=== PATIENT | male | born 1980 | race Hispanic/Latino ===

== ENCOUNTER 2020-11-04 09:39 | Inpatient (IN) | payer OTHER ==
[~2020-11-04] VITALS: Ht 170.2 cm; Wt 80.5 kg
[2020-11-04 10:22] LABS: APPEARANCE,URINE CLEAR (CLEAR); BILIRUBIN,URINE LARGE (NEGATIVE); COLOR,URINE ORANGE (YELLOW); GLUCOSE, URINE (UA) 100 mg/dL (NEGATIVE); KETONES,URINE 5 mg/dL (NEGATIVE); LEUKOCYTE ESTERASE ,URINE NEGATIVE (NEGATIVE); NITRATE,URINE NEGATIVE (NEGATIVE); OCCULT BLOOD,URINE NEGATIVE (NEGATIVE); PROTEIN,URINE TRACE mg/dL (NEGATIVE)
[2020-11-04 10:30] LABS: AMPHET/METH SCREEN,URINE NEGATIVE (NEGATIVE); BARBITURATE SCREEN, URINE NEGATIVE (NEGATIVE); BENZODIAZEPINES SCREEN,URINE NEGATIVE (NEGATIVE); CANNABINOID SCREEN,URINE NEGATIVE (NEGATIVE); COCAINE SCREEN,URINE NEGATIVE (NEGATIVE); OPIATE SCREEN,URINE NEGATIVE (NEGATIVE); PHENCYCLIDINE SCREEN,URINE NEGATIVE (NEGATIVE)
[2020-11-04 10:31] LABS: BASOPHILS % (AUTO) 1.1 % (0.0-5.0); EOSINOPHILS % (AUTO) 0.4 % (0.0-8.0); HEMATOCRIT 29.2 % (42-54); LYMPHOCYTES % (AUTO) 7.7 % (21.0-51.0); MEAN CORPUSCULAR HEMOGLOBIN 33.8 pg (27.0-33.0); MEAN CORPUSCULAR HGB CONC 34.2 g/dL (32.0-36.0); MEAN CORPUSCULAR VOLUME 98.6 fL (79-99); MONOCYTES % (AUTO) 9.3 % (3.0-13.0); NEUTROPHILS % (AUTO) 80.6 % (40.0-77.0); PLATELET COUNT (AUTO) 49 K/uL (130-400); RED BLOOD CELL COUNT(AUTO) 2.96 MIL/uL (4.50-6.20); RED CELL DISTRIBUTION WIDTH 17.3 % (11.0-15.5); WHITE BLOOD COUNT (AUTO) 5.7 K/uL (4.8-10.8)
[2020-11-04 10:36] LABS: BACTERIA,URINE Few /HPF (None Seen); RBC,URINE None Seen /HPF (0-1); WBC,URINE None Seen /HPF (0-1)
[2020-11-04 10:37] LABS: AMORPHOUS SEDIMENT,UR Few /LPF (None Seen)
[2020-11-04 10:39] LABS: INR 1.57 (0.85-1.15); PROTHROMBIN TIME 16.7 SEC (9.6-11.6)
[2020-11-04 10:58] LABS: ALBUMIN 2.5 g/dL (3.5-5.0); CREATININE 1.7 mg/dL (0.5-1.5); TOTAL PROTEIN, SERUM 6.8 g/dL (6.0-8.3)
[2020-11-04 11:01] LABS: BILIRUBIN,TOTAL 44.1 mg/dL (0.2-1.0); POTASSIUM 2.4 mmol/L (3.5-5.1)
[2020-11-04 11:33] LABS: MAGNESIUM 2.5 mg/dL (1.80-2.40); PHOSPHORUS 2.2 mg/dL (2.5-4.9)
[2020-11-04 11:48] LABS: BAND NEUTROPHILS % (MANUAL) 1 % (0-2); LYMPHOCYTES % (MANUAL) 8 % (22-44); MAN.DIFF COMMENT-IMPRESSION MANUAL DIFFERENTIAL; MONOCYTES % (MANUAL) 4 % (2-9); SEGMENTED NEUTROPHILS % 87 % (40-70)
[2020-11-04 11:49] LABS: PLATELET MORPHOLOGY COMMENT SLIGHTLY DECREASED
[2020-11-04] MEDS ORDERED: POTASSIUM CHLORIDE 20 MEQ ERTAB PO ONE (12:21)
[2020-11-04] MEDS ORDERED: NITROGLYCERIN 0.4 MG SL TAB SL PRN (15:15)
[2020-11-04] MEDS ORDERED: LACTULOSE 20 GM/30 ML UDCUP PO SCH (15:15)
[2020-11-04] MEDS ORDERED: LACTULOSE 20 GM/30 ML UDCUP PO PRN ×2 (15:15→20:00)
[2020-11-04] MEDS ORDERED: ACETAMINOPHEN 325 MG TAB PO PRN (15:15)
[2020-11-04] MEDS ORDERED: LACTULOSE 20 GM/30 ML UDCUP ONE ×2 (16:29→20:57)
[2020-11-04] MEDS ORDERED: ACETAMINOPHEN 325 MG TAB ONE (16:29)
[2020-11-04] MEDS: POTASSIUM CHLORIDE 20 MEQ ERTAB PO SCH ×2 (19:30→21:00)
[2020-11-04] MEDS ORDERED: FAMOTIDINE 20MG TAB 20 MG TAB ONE (20:57)
[2020-11-04] MEDS: FAMOTIDINE 20MG TAB 20 MG TAB PO SCH (21:00)
[2020-11-05 05:18] LABS: BASOPHILS % (AUTO) 1.6 % (0.0-5.0); EOSINOPHILS % (AUTO) 0.9 % (0.0-8.0); HEMATOCRIT 24.7 % (42-54); LYMPHOCYTES % (AUTO) 11.2 % (21.0-51.0); MEAN CORPUSCULAR HEMOGLOBIN 33.6 pg (27.0-33.0); MEAN CORPUSCULAR HGB CONC 34.4 g/dL (32.0-36.0); MEAN CORPUSCULAR VOLUME 97.6 fL (79-99); MONOCYTES % (AUTO) 13.4 % (3.0-13.0); PLATELET COUNT (AUTO) 45 K/uL (130-400); RED BLOOD CELL COUNT(AUTO) 2.53 MIL/uL (4.50-6.20); RED CELL DISTRIBUTION WIDTH 17.2 % (11.0-15.5); WHITE BLOOD COUNT (AUTO) 4.4 K/uL (4.8-10.8)
[2020-11-05 05:49] LABS: ALBUMIN 2.1 g/dL (3.5-5.0); CREATININE 1.2 mg/dL (0.5-1.5); CRP QUANTITATIVE 52.1 mg/L (0.00-9.0); TOTAL PROTEIN, SERUM 5.7 g/dL (6.0-8.3)
[2020-11-05 05:53] LABS: POTASSIUM 2.4 mmol/L (3.5-5.1)
[2020-11-05] MEDS ORDERED: POTASSIUM CHLORIDE 20 MEQ ERTAB PO ONE ×2 (08:34→14:46)
[2020-11-05] MEDS: FAMOTIDINE 20MG TAB 20 MG TAB PO SCH ×2 (09:00→21:00)
[2020-11-05] MEDS: POTASSIUM CHLORIDE 20 MEQ ERTAB PO SCH ×4 (09:00→21:00)
[2020-11-05] MEDS ORDERED: LORAZEPAM 2 MG/ML 1 ML VIAL IVP PRN (12:30)
[2020-11-05] MEDS ORDERED: FOLIC ACID 1 MG TABLET PO SCH (12:30)
[2020-11-05] MEDS ORDERED: THIAMINE HCL 100 MG TABLET PO SCH (12:30)
[2020-11-05] MEDS ORDERED: THIAMINE HCL 100 MG TABLET ONE (14:46)
[2020-11-05] MEDS ORDERED: FOLIC ACID 1 MG TABLET ONE (14:46)
[2020-11-05] MEDS ORDERED: LACTULOSE 20 GM/30 ML UDCUP ONE (15:17)
--- NOTE | 2020-11-05 17:13 | NUR ---
DC PLAN NO ANSWER FOR IA CM WILL CONTINUE TO FOLLOW. CURRENTLY IN ER. Addendum: 11/05/20 at 1714 by RODNEY REID RN CM Amended: Links added.
[2020-11-05] MEDS ORDERED: FAMOTIDINE 20MG TAB 20 MG TAB ONE (19:34)
[2020-11-05] MEDS ORDERED: POTASSIUM CHLORIDE 10% ELIXIR 20 MEQ/15 ML UDCUP ONE (19:34)
[2020-11-06 03:06] LABS: BASOPHILS % (AUTO) 1.5 % (0.0-5.0); EOSINOPHILS % (AUTO) 0.9 % (0.0-8.0); HEMATOCRIT 25.1 % (42-54); LYMPHOCYTES % (AUTO) 10.4 % (21.0-51.0); MEAN CORPUSCULAR HEMOGLOBIN 34.6 pg (27.0-33.0); MEAN CORPUSCULAR HGB CONC 35.1 g/dL (32.0-36.0); MEAN CORPUSCULAR VOLUME 98.8 fL (79-99); MONOCYTES % (AUTO) 15.1 % (3.0-13.0); PLATELET COUNT (AUTO) 45 K/uL (130-400); RED BLOOD CELL COUNT(AUTO) 2.54 MIL/uL (4.50-6.20); WHITE BLOOD COUNT (AUTO) 4.7 K/uL (4.8-10.8)
[2020-11-06 03:39] LABS: ALBUMIN 2.1 g/dL (3.5-5.0); CREATININE 1.3 mg/dL (0.5-1.5); TOTAL PROTEIN, SERUM 5.8 g/dL (6.0-8.3)
[2020-11-06 03:43] LABS: BILIRUBIN,TOTAL 39.8 mg/dL (0.2-1.0); POTASSIUM 2.4 mmol/L (3.5-5.1)
[2020-11-06] MEDS ORDERED: POTASSIUM CHLORIDE 10% ELIXIR 20 MEQ/15 ML UDCUP ONE (04:22)
[2020-11-06] MEDS ORDERED: FAMOTIDINE 20MG TAB 20 MG TAB ONE (07:58)
[2020-11-06] MEDS ORDERED: POTASSIUM CHLORIDE 20 MEQ ERTAB PO ONE (07:58)
[2020-11-06] MEDS ORDERED: THIAMINE HCL 100 MG TABLET ONE (07:58)
[2020-11-06] MEDS ORDERED: FOLIC ACID 1 MG TABLET ONE (07:59)
[2020-11-06] MEDS ORDERED: LIDOCAINE HCL-MPF 1% 2ML VIAL ONE (07:59)
[2020-11-06] MEDS ORDERED: POTASSIUM CHLORIDE 20MEQ/100ML 100 ML IV ONE (07:59)
[2020-11-06] MEDS ORDERED: POTASSIUM CHLORIDE 10% ELIXIR 20 MEQ/15 ML UDCUP PO PRN (08:00)
[2020-11-06] MEDS ORDERED: POTASSIUM CHLORIDE 20MEQ/100ML 100 ML IV PRN (08:00)
[2020-11-06] MEDS ORDERED: POTASSIUM CHLORIDE 20 MEQ ERTAB PO SCH (08:15)
[2020-11-06] MEDS: THIAMINE HCL 100 MG TABLET PO SCH (09:00)
[2020-11-06] MEDS: FOLIC ACID 1 MG TABLET PO SCH (09:00)
[2020-11-06] MEDS: FAMOTIDINE 20MG TAB 20 MG TAB PO SCH ×2 (09:00→21:05)
[2020-11-06] MEDS ORDERED: PHARMACY COMMUNICATION MISC PRN (09:30)
[2020-11-06] MEDS ORDERED: CHLORDIAZEPOXIDE HCL 25 MG CAP ONE (14:07)
[2020-11-06 17:24] VITALS: BP 108/71
--- NOTE | 2020-11-06 17:37 | NUR ---
DC PLAN PATIENT LIVES ALONE. INDEPENDENT ABLE TO PERFORM ADL'S. PATIENT HAS NO SERVICES OR DME'S. FEELS SAFE TO RETURN HOME. Addendum: 11/06/20 at 1739 by RODNEY REID RN CM Amended: Links added.
[2020-11-06] MEDS: POTASSIUM CHLORIDE 20 MEQ ERTAB PO SCH (19:30)
[2020-11-06 19:31] VITALS: BP 125/66
[2020-11-07] VITALS (7 sets, daily range): BP systolic 106–116; BP diastolic 56–64
[2020-11-07] MEDS: LACTULOSE 20 GM/30 ML UDCUP PO SCH ×2 (02:53→14:00)
[2020-11-07 05:34] LABS: BASOPHILS % (AUTO) 1.7 % (0.0-5.0); EOSINOPHILS % (AUTO) 0.8 % (0.0-8.0); HEMATOCRIT 26.2 % (42-54); LYMPHOCYTES % (AUTO) 11.5 % (21.0-51.0); MEAN CORPUSCULAR HEMOGLOBIN 34.1 pg (27.0-33.0); MEAN CORPUSCULAR HGB CONC 34.7 g/dL (32.0-36.0); MEAN CORPUSCULAR VOLUME 98.1 fL (79-99); MONOCYTES % (AUTO) 16.1 % (3.0-13.0); NEUTROPHILS % (AUTO) 68.8 % (40.0-77.0); PLATELET COUNT (AUTO) 46 K/uL (130-400); RED BLOOD CELL COUNT(AUTO) 2.67 MIL/uL (4.50-6.20); RED CELL DISTRIBUTION WIDTH 16.4 % (11.0-15.5); WHITE BLOOD COUNT (AUTO) 4.7 K/uL (4.8-10.8)
[2020-11-07 06:11] LABS: ALANINE AMINOTRANSFERASE 35 U/L (12-78); ALBUMIN 1.9 g/dL (3.5-5.0); ASPARTATE AMINOTRANSFERASE 103 U/L (10-37); CARBON DIOXIDE 23 mmol/L (21-32); CHLORIDE 101 mmol/L (101-111); CREATININE 1.2 mg/dL (0.5-1.5); GLOMERULAR FILTR. RATE CALC 71 mL/min (>60); GLUCOSE,RANDOM 94 mg/dL (70-105); SODIUM SERUM 135 mmol/L (136-145); UREA NITROGEN, BLOOD 8 mg/dL (7-18)
[2020-11-07 06:18] LABS: BILIRUBIN,TOTAL 41.4 mg/dL (0.2-1.0); POTASSIUM 2.6 mmol/L (3.5-5.1)
[2020-11-07] MEDS ORDERED: LIDOCAINE HCL-MPF 1% 2ML VIAL ONE ×2 (06:42→21:15)
[2020-11-07] MEDS: POTASSIUM CHLORIDE 20MEQ/100ML 100 ML IV PRN ×2 (06:44→21:20)
[2020-11-07] MEDS: POTASSIUM CHLORIDE 20 MEQ ERTAB PO PRN ×3 (06:45→22:51)
--- NOTE | 2020-11-07 08:00 | NUR ---
ANSWER NURSE CALL LIGHT pt pulled iv catheter blood present on gown and sheets and a trail to bathroom of blood instructed pt to call for assistance when up out of bed ,use nurse call light before ambulating voices understanding
[2020-11-07 09:50] LABS: TOTAL PROTEIN, SERUM > 12.0 g/dL (6.0-8.3)
[2020-11-07] MEDS: FAMOTIDINE 20MG TAB 20 MG TAB PO SCH ×2 (10:20→21:21)
[2020-11-07] MEDS: THIAMINE HCL 100 MG TABLET PO SCH (10:20)
[2020-11-07] MEDS: FOLIC ACID 1 MG TABLET PO SCH (10:20)
[2020-11-07] MEDS: CHLORDIAZEPOXIDE HCL 25 MG CAP PO PRN ×2 (10:22→21:21)
--- NOTE | 2020-11-07 14:51 | NUR ---
INITIAL SW met with patient. Patient lives alone. He has no home services or DME. Patient is able to complete ADL's independently but does not drive. Family assists with transportation. Patient has no PCP. List of local clinics provided to patient. Pharmacy is [facility] located on [facility] in [place]. DCP is home. Patient has no insurance or benefits. He is a [place] citizen and has worked in the past. Patient was provided with community resources for post hospitalization follow up. Patient was also provided with Good RX card for prescriptions and educated on [employer] $4 medication program and [employer] $5 medication program. Patient is being assisted by [employer] for financial matters.
[2020-11-07] MEDS: POTASSIUM CHLORIDE 20 MEQ ERTAB PO SCH (17:44)
[2020-11-08] MEDS: POTASSIUM CHLORIDE 20 MEQ ERTAB PO PRN ×3 (00:35→07:45)
[2020-11-08] MEDS: LACTULOSE 20 GM/30 ML UDCUP PO SCH (01:00)
[2020-11-08 03:40] VITALS: BP 90/50
[2020-11-08 05:56] LABS: INR 1.8 (0.85-1.15); PARTIAL THROMBOPLASTIN TIME 41.5 SEC (26.3-35.5)
[2020-11-08 06:25] LABS: ALBUMIN 1.9 g/dL (3.5-5.0); CREATININE 1.3 mg/dL (0.5-1.5); POTASSIUM 3.3 mmol/L (3.5-5.1); TOTAL PROTEIN, SERUM 5.7 g/dL (6.0-8.3)
[2020-11-08 06:42] LABS: BILIRUBIN,TOTAL 38.8 mg/dL (0.2-1.0)
[2020-11-08] MEDS: FAMOTIDINE 20MG TAB 20 MG TAB PO SCH (07:44)
[2020-11-08] MEDS: THIAMINE HCL 100 MG TABLET PO SCH (07:44)
[2020-11-08] MEDS: FOLIC ACID 1 MG TABLET PO SCH (07:44)
[2020-11-08] MEDS: CHLORDIAZEPOXIDE HCL 25 MG CAP PO PRN ×2 (07:46→10:25)
[2020-11-08 07:50] VITALS: BP 101/62
[2020-11-08 12:19] VITALS: BP 112/59
[2020-11-08 16:41] VITALS: BP 119/64
[2020-11-08] MEDS: POTASSIUM CHLORIDE 20 MEQ ERTAB PO SCH (19:30)
[2020-11-08 20:22] VITALS: BP 104/55
--- NOTE | 2020-11-08 21:00 | NUR ---
Discharged Against Medical Advice Stone Sawyer came back to re-insert PIV to the patient, but was found to be dressed up with his personal clothing. Pt was adamant to go home. 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 I've been here for days already. I need to go home. I am tired of waiting. They kept telling me to stay but I don't want to stay anymore. 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 Stone Sawyer explained the pt condition and the risk of going home. Pt said " I don't care". Stone Sawyer talked to pt's Sister ( Hannah) thru phone. Stone Sawyer explained to her also the pt condition and the risk involved if her brother goes home against medical advice. Sister said it's ok and that she's on her way to cherry picker operator his brother. Pt did signed the AMA form and was wheeled to ER. No untoward incident happened. Distress / discomfort not noted. Office Helper and on-call hospitalist made aware.
== END 2020-11-08 21:44 | disposition left against medical advice (07) | DRG 313 ==
LOC: EDH 09:39 → EDHIP 09:40 → 3BH 11-06 16:20
PROVIDERS: ADMIT Hospitalist; ATTEND Hospitalist
DX: R07.89 Other chest pain (principal); N17.9 Acute kidney failure, unspecified; F10.239 Alcohol dependence with withdrawal, unspecified; K72.90 Hepatic failure, unspecified without coma; N18.9 Chronic kidney disease, unspecified; D69.6 Thrombocytopenia, unspecified; D64.9 Anemia, unspecified; I48.91 Unspecified atrial fibrillation; K70.30 Alcoholic cirrhosis of liver without ascites; I86.8 Varicose veins of other specified sites; E87.6 Hypokalemia; R27.8 Other lack of coordination; R16.2 Hepatomegaly with splenomegaly, not elsewhere classified; R77.8 Other specified abnormalities of plasma proteins; Z20.828 Contact with and (suspected) exposure to other viral communicable diseases; Z53.29 Procedure and treatment not carried out because of patient's decision for other reasons; Z90.49 Acquired absence of other specified parts of digestive tract; Z82.49 Family history of ischemic heart disease and other diseases of the circulatory system
CPT/HCPCS: 36415; 74176; 76705; 78226; 80053; 80305; 81001; 82140; 82550; 83540; 83550; 83605; 83690; 83735; 84100; 84132; 84145; 84484; 85025; 85610; 85730; 86140; 87426; 93005; 93306; 93356; A9537; G0378; J2060; J3480; J3490; U0003

== ENCOUNTER 2020-11-11 10:46 | Inpatient (IN) | payer OTHER ==
[~2020-11-11] VITALS: Ht 170.2 cm; Wt 78.7 kg
[2020-11-11 11:34] LABS: BASOPHILS % (AUTO) 0.9 % (0.0-5.0); EOSINOPHILS % (AUTO) 0.1 % (0.0-8.0); HEMATOCRIT 31.5 % (42-54); LYMPHOCYTES % (AUTO) 6.2 % (21.0-51.0); MEAN CORPUSCULAR HEMOGLOBIN 34.2 pg (27.0-33.0); MEAN CORPUSCULAR HGB CONC 34.9 g/dL (32.0-36.0); MEAN CORPUSCULAR VOLUME 97.8 fL (79-99); MONOCYTES % (AUTO) 9.2 % (3.0-13.0); NEUTROPHILS % (AUTO) 82.4 % (40.0-77.0); PLATELET COUNT (AUTO) 59 K/uL (130-400); RED BLOOD CELL COUNT(AUTO) 3.22 MIL/uL (4.50-6.20); RED CELL DISTRIBUTION WIDTH 15.3 % (11.0-15.5)
[2020-11-11 11:35] LABS: APPEARANCE,URINE CLEAR (CLEAR); BILIRUBIN,URINE LARGE (NEGATIVE); GLUCOSE, URINE (UA) NEGATIVE (NEGATIVE); KETONES,URINE NEGATIVE (NEGATIVE); LEUKOCYTE ESTERASE ,URINE NEGATIVE (NEGATIVE); NITRATE,URINE NEGATIVE (NEGATIVE); OCCULT BLOOD,URINE NEGATIVE (NEGATIVE); PH,URINE 6.5 (5.0-8.0); PROTEIN,URINE NEGATIVE (NEGATIVE)
[2020-11-11 11:37] LABS: COLOR,URINE DARK YELLOW (YELLOW)
[2020-11-11 11:41] LABS: AMPHET/METH SCREEN,URINE NEGATIVE (NEGATIVE); BARBITURATE SCREEN, URINE NEGATIVE (NEGATIVE); BENZODIAZEPINES SCREEN,URINE POSITIVE (NEGATIVE); CANNABINOID SCREEN,URINE NEGATIVE (NEGATIVE); COCAINE SCREEN,URINE NEGATIVE (NEGATIVE); OPIATE SCREEN,URINE NEGATIVE (NEGATIVE); PHENCYCLIDINE SCREEN,URINE NEGATIVE (NEGATIVE)
[2020-11-11 11:52] LABS: BACTERIA,URINE Rare /HPF (None Seen); MUCUS,URINE Rare LPF (None Seen); RBC,URINE 0-1 /HPF (0-1); WBC,URINE 0-1 /HPF (0-1)
[2020-11-11 11:54] LABS: PLATELET MORPHOLOGY COMMENT DECREASED
[2020-11-11 12:02] LABS: CREATININE 1.7 mg/dL (0.5-1.5)
[2020-11-11 12:10] LABS: BILIRUBIN,TOTAL 43.5 mg/dL (0.2-1.0); POTASSIUM 2.9 mmol/L (3.5-5.1)
[2020-11-11 12:11] LABS: BILIRUBIN,DIRECT 29.7 mg/dL (0.0-0.3)
[2020-11-11 12:38] LABS: TOTAL PROTEIN, SERUM 6.5 g/dL (6.0-8.3)
[2020-11-11] MEDS ORDERED: CEFTRIAXONE SODIUM 1 GM ONE (13:03)
[2020-11-11] MEDS ORDERED: POTASSIUM CHLORIDE 20 MEQ ERTAB PO ONE (14:25)
[2020-11-11] MEDS ORDERED: ONDANSETRON HCL 4 MG/2 ML VIAL IV PRN (14:45)
[2020-11-11] MEDS ORDERED: DIPHENHYDRAMINE HCL 25 MG CAPSULE PO PRN (14:45)
[2020-11-11] MEDS: FUROSEMIDE 10 MG/ML 2ML VIAL IV SCH (14:45)
[2020-11-11] MEDS ORDERED: LACTULOSE 20 GM/30 ML UDCUP PO PRN (14:45)
[2020-11-11] MEDS ORDERED: CHLORDIAZEPOXIDE HCL 25 MG CAP PO PRN (15:00)
[2020-11-11] MEDS ORDERED: ACETAMINOPHEN EXTRA STRENGTH 500 MG TABLET PO PRN (15:00)
[2020-11-11] MEDS ORDERED: LORAZEPAM 2 MG/ML 1 ML VIAL IVP PRN (15:00)
[2020-11-11] MEDS ORDERED: PHARMACY COMMUNICATION MISC PRN (15:00)
[2020-11-11] MEDS ORDERED: LIDOCAINE HCL-MPF 1% 2ML VIAL IV PRN (15:00)
[2020-11-11] MEDS ORDERED: MULTIVITAMIN TABLET ONE (15:42)
[2020-11-11] MEDS ORDERED: FOLIC ACID 1 MG TABLET ONE (15:42)
[2020-11-11] MEDS ORDERED: FUROSEMIDE 10 MG/ML 2ML VIAL ONE (15:42)
[2020-11-11] MEDS ORDERED: FAMOTIDINE/PF 20 MG/2 ML VIAL IV ONE (15:43)
[2020-11-11 22:20] VITALS: BP_SYST 107; BP_SYST 108; BP_SYST 109; BP_DIAS 51; BP_DIAS 55; BP_DIAS 57
[2020-11-11] MEDS: FAMOTIDINE/PF 20 MG/2 ML VIAL IV SCH (22:42)
[2020-11-11] MEDS: POTASSIUM CHLORIDE 20 MEQ ERTAB PO PRN ×2 (22:42→23:12)
[2020-11-11 23:41] VITALS: BP 109/57
[2020-11-12] MEDS: FUROSEMIDE 10 MG/ML 2ML VIAL IV SCH (03:03)
[2020-11-12 04:00] VITALS: BP 101/55
[2020-11-12] MEDS ORDERED: PHARMACY COMMUNICATION MISC SCH (07:30)
[2020-11-12 07:47] LABS: BASOPHILS % (AUTO) 1.9 % (0.0-5.0); EOSINOPHILS % (AUTO) 0.6 % (0.0-8.0); HEMATOCRIT 26.6 % (42-54); LYMPHOCYTES % (AUTO) 10.5 % (21.0-51.0); MEAN CORPUSCULAR HEMOGLOBIN 34.8 pg (27.0-33.0); MEAN CORPUSCULAR HGB CONC 36.5 g/dL (32.0-36.0); MEAN CORPUSCULAR VOLUME 95.3 fL (79-99); MONOCYTES % (AUTO) 12.6 % (3.0-13.0); NEUTROPHILS % (AUTO) 73.6 % (40.0-77.0); PLATELET COUNT (AUTO) 53 K/uL (130-400); RED BLOOD CELL COUNT(AUTO) 2.79 MIL/uL (4.50-6.20); RED CELL DISTRIBUTION WIDTH 14.8 % (11.0-15.5); WHITE BLOOD COUNT (AUTO) 5.3 K/uL (4.8-10.8)
[2020-11-12 07:59] VITALS: BP 103/51
[2020-11-12 08:19] LABS: ALBUMIN 1.8 g/dL (3.5-5.0); CREATININE 1.8 mg/dL (0.5-1.5)
[2020-11-12 08:41] LABS: BILIRUBIN,TOTAL 39.2 mg/dL (0.2-1.0); POTASSIUM 2.1 mmol/L (3.5-5.1)
[2020-11-12 08:42] LABS: BILIRUBIN,DIRECT 29.2 mg/dL (0.0-0.3)
[2020-11-12] MEDS: FAMOTIDINE/PF 20 MG/2 ML VIAL IV SCH ×2 (08:51→20:29)
[2020-11-12] MEDS: LACTULOSE 20 GM/30 ML UDCUP PO SCH ×3 (08:51→20:29)
[2020-11-12] MEDS: PREDNISOLONE 5 MG/5 ML PO SCH (08:51)
[2020-11-12] MEDS: FOLIC ACID 1 MG TABLET PO SCH (08:51)
[2020-11-12] MEDS: THIAMINE HCL 100 MG/ML 2ML VIAL IM SCH (08:51)
[2020-11-12] MEDS: MULTIVITAMIN TABLET PO SCH (08:51)
[2020-11-12] MEDS: PREDNISOLONE 15 MG/5 ML PO SCH (08:52)
[2020-11-12] MEDS: POTASSIUM CHLORIDE 10% ELIXIR 20 MEQ/15 ML UDCUP PO PRN ×2 (08:52→13:40)
[2020-11-12] MEDS: POTASSIUM CHLORIDE 20MEQ/100ML 100 ML IV PRN ×2 (08:53→13:40)
[2020-11-12 08:56] LABS: TOTAL PROTEIN, SERUM 5.6 g/dL (6.0-8.3)
[2020-11-12] MEDS ORDERED: PREDNISONE 20 MG TABLET PO SCH (09:00)
[2020-11-12 09:48] LABS: INR 1.92 (0.85-1.15); PROTHROMBIN TIME 19.7 SEC (9.6-11.6)
[2020-11-12 11:00] VITALS: BP 105/57
[2020-11-12] MEDS ORDERED: POTASSIUM CHLORIDE 10MEQ/100ML 100 ML IV PRN (14:00)
[2020-11-12] MEDS ORDERED: POTASSIUM CHLORIDE 10% ELIXIR 20 MEQ/15 ML UDCUP PO PRN (14:00)
[2020-11-12 14:21] LABS: CREATININE 1.8 mg/dL (0.5-1.5); MAGNESIUM 2.3 mg/dL (1.80-2.40)
[2020-11-12 14:25] LABS: POTASSIUM 2.2 mmol/L (3.5-5.1)
--- NOTE | 2020-11-12 14:26 | NUR ---
CM NOTE/IA MET WITH PATIENT AT BEDSIDE. PER PATIENT, LIVES ALONE, IS INDEPENDENT WITH ADLS, NO USE OF PROVIDERS OR HOME HEALTH, HAS USE OF RIDES IF NEEDING TO SEE MEDICAL SERVICES AND FEELS SAFE TO RETURN HOME ONCE DISCHARGED. GOOD RX CARDS GIVEN AND EXPLAINED USE, VERBALIZED UNDERSTANDING. PATIENT INTERESTED IN PROVIDER SERVICES, NUMBER FOR DEPART OF AGING AND DISABILITY GIVEN TO PATIENT AND EXPLAINED, VERBALIZED UNDERSTANDING. Addendum: 11/12/20 at 1428 by MARTHA FUNG RN CM Amended: Links added.
--- NOTE | 2020-11-12 15:05 | NUR ---
RD NOTIFICATION Pt admitted due to hyperbilirubinemia, liver cirrhosis and hypokalemia Pt has hx of being a chronic acholic drinker. As per pt, he stopped drinking 11 days prior to admission. RD visited pt. Pt appears to be jaundiced. Hand trembling was noticed, along with weakness. Pt stating having unintentional weight loss. As per pt, his usual body weight was of 250 lbs in August 2020. Current weight is of 184 lbs. This indicates a 73% UBW and 26% WT [place] in 2 months. All these are evident of severe malnutrition. As per pt he stopped taking a daily MVI and only eats one meal/day Pt denies current nausea/vomiting. Prior to admission pt was experiencing nausea and vomiting however, pt' father gave pt an anti nausea/vomiting over the counter medication ("green bottle") as per pt RD RECOMMENDATION: When medically feasible to advance diet, consider a heart healthy diet, with snacks in between meals Pt may also benefit from 6 small meals/day if PO intake is <50% Continue vitamin supplementation as medically feasible When medically feasible, consider retinol lab values to assess Vitamin A status. Monitor for hyperglycemia and hypocalcemia. Monitor Bilirubin labs LABS: HGB 9.2, K 2.1, NA 135, BUN 20, CREAT 1.8, ALB 1.8, BILI 39.2, TOT PRO 5.6, AMMONIA 51 Addendum: 11/12/20 at [address] Amended: Links added.
[2020-11-12 15:22] LABS: APPEARANCE,URINE CLEAR (CLEAR); BILIRUBIN,URINE LARGE (NEGATIVE); COLOR,URINE YELLOW (YELLOW); GLUCOSE, URINE (UA) NEGATIVE (NEGATIVE); KETONES,URINE NEGATIVE (NEGATIVE); LEUKOCYTE ESTERASE ,URINE NEGATIVE (NEGATIVE); NITRATE,URINE NEGATIVE (NEGATIVE); OCCULT BLOOD,URINE NEGATIVE (NEGATIVE); PROTEIN,URINE NEGATIVE (NEGATIVE)
[2020-11-12 15:26] LABS: CREATININE,URINE RANDOM 48 mg/dL (30-135); SODIUM,URINE RANDOM 27 mmol/l (40-220)
[2020-11-12 15:33] LABS: BACTERIA,URINE Few /HPF (None Seen); MUCUS,URINE Few LPF (None Seen); SQUAMOUS EPITHELIAL CELL,UR Few /HPF (0-2)
[2020-11-12] MEDS ORDERED: POTASSIUM CHLORIDE 10% ELIXIR 20 MEQ/15 ML UDCUP PO SCH (16:15)
[2020-11-12 16:31] VITALS: BP 103/56
[2020-11-12 19:48] VITALS: BP 106/62
[2020-11-12] MEDS: POTASSIUM CHLORIDE 10% ELIXIR 20 MEQ/15 ML UDCUP PO SCH (20:30)
[2020-11-12 23:39] VITALS: BP 104/55
[2020-11-13] MEDS: LACTULOSE 20 GM/30 ML UDCUP PO SCH ×4 (01:50→18:54)
[2020-11-13 04:00] VITALS: BP 106/56
[2020-11-13 05:16] LABS: BASOPHILS % (AUTO) 0.5 % (0.0-5.0); EOSINOPHILS % (AUTO) 1.1 % (0.0-8.0); HEMATOCRIT 27.2 % (42-54); LYMPHOCYTES % (AUTO) 9.6 % (21.0-51.0); MEAN CORPUSCULAR HEMOGLOBIN 34.2 pg (27.0-33.0); MEAN CORPUSCULAR HGB CONC 35.3 g/dL (32.0-36.0); MEAN CORPUSCULAR VOLUME 96.8 fL (79-99); MONOCYTES % (AUTO) 10.7 % (3.0-13.0); PLATELET COUNT (AUTO) 60 K/uL (130-400); RED BLOOD CELL COUNT(AUTO) 2.81 MIL/uL (4.50-6.20); RED CELL DISTRIBUTION WIDTH 14.7 % (11.0-15.5); WHITE BLOOD COUNT (AUTO) 7.6 K/uL (4.8-10.8)
[2020-11-13 06:08] LABS: ALBUMIN 1.9 g/dL (3.5-5.0); CREATININE 1.8 mg/dL (0.5-1.5); MAGNESIUM 2.4 mg/dL (1.80-2.40); PHOSPHORUS 1.8 mg/dL (2.5-4.9); POTASSIUM 3.3 mmol/L (3.5-5.1)
[2020-11-13 06:12] LABS: BILIRUBIN,TOTAL 36.5 mg/dL (0.2-1.0)
[2020-11-13 06:15] LABS: INR 1.83 (0.85-1.15); PROTHROMBIN TIME 18.8 SEC (9.6-11.6)
[2020-11-13 06:41] LABS: TOTAL PROTEIN, SERUM 4.6 g/dL (6.0-8.3)
[2020-11-13 08:00] VITALS: BP 105/55
[2020-11-13] MEDS ORDERED: POTASSIUM CHLORIDE 20 MEQ/100 ML BAG IV SCH ×4 (09:00→20:00)
[2020-11-13] MEDS ORDERED: M.V.I. IV [ADULT] 10 ML, FOLIC ACID 1 MG, THIAMINE HCL 100 MG in SODIUM CHLORIDE 0.9% 1... IV SCH (09:00)
[2020-11-13] MEDS: THIAMINE HCL 100 MG/ML 2ML VIAL IM SCH (09:00)
[2020-11-13] MEDS ORDERED: POTASSIUM CHLORIDE 20 MEQ ERTAB PO SCH (09:00)
[2020-11-13] MEDS ORDERED: POTASSIUM CHLORIDE 20MEQ/100ML 100 ML IV SCH (09:45)
[2020-11-13] MEDS: MULTIVITAMIN TABLET PO SCH (09:47)
[2020-11-13] MEDS: FOLIC ACID 1 MG TABLET PO SCH (09:47)
[2020-11-13] MEDS: Vitamin B Complex/Vit C/Folic Acid PO SCH (09:48)
[2020-11-13] MEDS: POTASSIUM CHLORIDE 10% ELIXIR 20 MEQ/15 ML UDCUP PO SCH ×2 (09:49→20:57)
[2020-11-13] MEDS: FAMOTIDINE/PF 20 MG/2 ML VIAL IV SCH ×2 (09:50→20:56)
--- NOTE | 2020-11-13 11:47 | NUR ---
DISCUSSED PT'S ETOH DEPENDENCE AND DC PLAN STATES LAST DRINK 11 DAYS AGO/. STATES HAS NEVER BEEN TO AA IN THE PAST. DISCUSSED AA MEETINGS VIA [facility], RODNEY 'BIGBOOK' PATIENT WILL CONSIDER, AND THIS CM WILL RETURN IN PM, TO SET UP PATIENT AND SHOW HOW TO GET ON IF HE AGREES EARLIER ADVISED PATIENT THAT SENDING HIM TO REHAB WILL NOT BE POSSIBLE- PT IS UNINSURED. NOW DISCUSSED DC PLANS AND WHERE PATIENT CAN GO POST DISCHARGE SISTERS ALANNA AND ARMIN IN QUARANTINE/GETTING OVER COVID. STATES WILL PROBABLY GO STAY WITH HIS FATHER. DISCUSSED MELD SCORE W , 52% MORTALITY < 3 MONTHS' DISCUSSED. PENDING TO DISCUSS PROGNOSIS WITH PATIENT AT DISCHARGE. PLAN TO DC WHEN BILI IS TRENDING DOWN. CM AVAILABLE
[2020-11-13 11:49] VITALS: BP 98/47
[2020-11-13 13:23] LABS: MAGNESIUM 2.1 mg/dL (1.80-2.40); PHOSPHORUS 1.6 mg/dL (2.5-4.9); POTASSIUM 3.2 mmol/L (3.5-5.1)
[2020-11-13] MEDS: PREDNISOLONE 15 MG/5 ML PO SCH (13:40)
[2020-11-13] MEDS: PREDNISOLONE 5 MG/5 ML PO SCH (13:40)
[2020-11-13 16:00] VITALS: BP 116/65
[2020-11-13] MEDS ORDERED: POTASSIUM CHLORIDE 10% ELIXIR 20 MEQ/15 ML UDCUP PO SCH (16:15)
[2020-11-13] MEDS ORDERED: POTASSIUM CHLORIDE 20MEQ/100ML 100 ML IV ONE ×2 (16:30→20:00)
[2020-11-13 19:48] VITALS: BP 110/66
[2020-11-13] MEDS: LIDOCAINE HCL-MPF 1% 2ML VIAL IV PRN (23:08)
[2020-11-13 23:36] VITALS: BP 113/62
[2020-11-14] MEDS: LACTULOSE 20 GM/30 ML UDCUP PO SCH ×4 (00:50→18:50)
[2020-11-14 04:00] VITALS: BP 106/57
[2020-11-14 06:35] LABS: CREATININE 1.7 mg/dL (0.5-1.5); MAGNESIUM 2.4 mg/dL (1.80-2.40); PHOSPHORUS 2.4 mg/dL (2.5-4.9); POTASSIUM 3.6 mmol/L (3.5-5.1)
[2020-11-14] MEDS: FOLIC ACID 1 MG TABLET PO SCH (08:31)
[2020-11-14] MEDS: MULTIVITAMIN TABLET PO SCH (08:31)
[2020-11-14] MEDS: Vitamin B Complex/Vit C/Folic Acid PO SCH (08:31)
[2020-11-14] MEDS: FAMOTIDINE/PF 20 MG/2 ML VIAL IV SCH ×2 (08:32→20:17)
[2020-11-14] MEDS: POTASSIUM CHLORIDE 10% ELIXIR 20 MEQ/15 ML UDCUP PO SCH ×2 (08:32→20:17)
[2020-11-14] MEDS: THIAMINE HCL 100 MG/ML 2ML VIAL IM SCH (08:39)
--- NOTE | 2020-11-14 08:39 | NUR ---
im thiamine held due to pt receicing multivitamin iv fluid with thiamine
[2020-11-14] MEDS ORDERED: POTASSIUM CHLORIDE 20 MEQ ERTAB PO SCH (08:46)
[2020-11-14 09:31] LABS: ALBUMIN 1.9 g/dL (3.5-5.0)
[2020-11-14 09:32] VITALS: BP 117/61
[2020-11-14 09:35] LABS: BILIRUBIN,DIRECT 29.3 mg/dL (0.0-0.3); BILIRUBIN,TOTAL 39.5 mg/dL (0.2-1.0)
[2020-11-14] MEDS: PREDNISOLONE 5 MG/5 ML PO SCH (12:21)
[2020-11-14] MEDS: PREDNISOLONE 15 MG/5 ML PO SCH (12:21)
[2020-11-14 13:59] VITALS: BP 120/63
[2020-11-14 17:07] VITALS: BP 112/63
[2020-11-14 19:20] VITALS: BP 121/72
[2020-11-14 23:29] VITALS: BP 105/60
[2020-11-15] MEDS: LACTULOSE 20 GM/30 ML UDCUP PO SCH ×4 (02:48→18:59)
[2020-11-15 04:00] VITALS: BP 96/48
[2020-11-15 05:50] LABS: BASOPHILS % (AUTO) 0.3 % (0.0-5.0); HEMATOCRIT 29.7 % (42-54); LYMPHOCYTES % (AUTO) 5.7 % (21.0-51.0); MEAN CORPUSCULAR HEMOGLOBIN 34.1 pg (27.0-33.0); MEAN CORPUSCULAR VOLUME 97.4 fL (79-99); MONOCYTES % (AUTO) 9.5 % (3.0-13.0); NEUTROPHILS % (AUTO) 81.1 % (40.0-77.0); PLATELET COUNT (AUTO) 69 K/uL (130-400); RED BLOOD CELL COUNT(AUTO) 3.05 MIL/uL (4.50-6.20); RED CELL DISTRIBUTION WIDTH 14.6 % (11.0-15.5); WHITE BLOOD COUNT (AUTO) 12.7 K/uL (4.8-10.8)
[2020-11-15 07:04] LABS: ALBUMIN 1.9 g/dL (3.5-5.0); PHOSPHORUS 2.9 mg/dL (2.5-4.9); POTASSIUM 3.4 mmol/L (3.5-5.1)
[2020-11-15 08:15] VITALS: BP 121/67
[2020-11-15 09:04] LABS: BILIRUBIN,TOTAL 36.2 mg/dL (0.2-1.0)
[2020-11-15] MEDS: PREDNISOLONE 5 MG/5 ML PO SCH (09:53)
[2020-11-15] MEDS: FAMOTIDINE/PF 20 MG/2 ML VIAL IV SCH ×2 (09:53→20:21)
[2020-11-15] MEDS: Vitamin B Complex/Vit C/Folic Acid PO SCH (09:53)
[2020-11-15] MEDS: MULTIVITAMIN TABLET PO SCH (09:53)
[2020-11-15] MEDS: PREDNISOLONE 15 MG/5 ML PO SCH (09:53)
[2020-11-15] MEDS: POTASSIUM CHLORIDE 10% ELIXIR 20 MEQ/15 ML UDCUP PO SCH ×2 (09:54→20:22)
[2020-11-15 11:46] LABS: INR 1.92 (0.85-1.15); PROTHROMBIN TIME 19.4 SEC (9.6-11.6)
[2020-11-15] MEDS: THIAMINE HCL 100 MG/ML 2ML VIAL IM SCH (12:08)
[2020-11-15] MEDS: POTASSIUM CHLORIDE 20 MEQ ERTAB PO PRN ×2 (12:10→15:48)
[2020-11-15] MEDS: LIDOCAINE HCL-MPF 1% 2ML VIAL IV PRN (12:11)
[2020-11-15 12:25] VITALS: BP 120/63
[2020-11-15 18:34] VITALS: BP 121/70
[2020-11-15 19:05] VITALS: BP 112/63
[2020-11-15 23:20] VITALS: BP 117/62
[2020-11-16] MEDS: LACTULOSE 20 GM/30 ML UDCUP PO SCH ×2 (01:17→09:07)
[2020-11-16 03:44] VITALS: BP 126/74
[2020-11-16 05:50] LABS: BASOPHILS % (AUTO) 0.1 % (0.0-5.0); LYMPHOCYTES % (AUTO) 6.3 % (21.0-51.0); MEAN CORPUSCULAR HEMOGLOBIN 33.8 pg (27.0-33.0); MEAN CORPUSCULAR VOLUME 96.7 fL (79-99); MONOCYTES % (AUTO) 9.8 % (3.0-13.0); NEUTROPHILS % (AUTO) 82.2 % (40.0-77.0); PLATELET COUNT (AUTO) 57 K/uL (130-400); RED BLOOD CELL COUNT(AUTO) 2.69 MIL/uL (4.50-6.20); RED CELL DISTRIBUTION WIDTH 14.6 % (11.0-15.5); WHITE BLOOD COUNT (AUTO) 8.1 K/uL (4.8-10.8)
[2020-11-16 06:05] LABS: INR 1.89 (0.85-1.15); PROTHROMBIN TIME 19.1 SEC (9.6-11.6)
[2020-11-16 06:32] LABS: ALBUMIN 1.7 g/dL (3.5-5.0); CREATININE 1.8 mg/dL (0.5-1.5); POTASSIUM 3.3 mmol/L (3.5-5.1); TOTAL PROTEIN, SERUM 5.4 g/dL (6.0-8.3)
[2020-11-16 06:41] LABS: BILIRUBIN,DIRECT 24.9 mg/dL (0.0-0.3); BILIRUBIN,TOTAL 30.8 mg/dL (0.2-1.0)
[2020-11-16 08:01] VITALS: BP 114/63
[2020-11-16] MEDS ORDERED: THIA500T3 PO (08:23)
[2020-11-16] MEDS ORDERED: LACT10SO32 PO (08:23)
[2020-11-16] MEDS ORDERED: FOLI0.4T2 PO (08:23)
[2020-11-16] MEDS: FAMOTIDINE/PF 20 MG/2 ML VIAL IV SCH (09:05)
[2020-11-16] MEDS: Vitamin B Complex/Vit C/Folic Acid PO SCH (09:05)
[2020-11-16] MEDS: MULTIVITAMIN TABLET PO SCH (09:05)
[2020-11-16] MEDS: POTASSIUM CHLORIDE 10% ELIXIR 20 MEQ/15 ML UDCUP PO SCH (09:05)
[2020-11-16] MEDS: THIAMINE HCL 100 MG/ML 2ML VIAL IM SCH (09:05)
[2020-11-16] MEDS: PREDNISOLONE 15 MG/5 ML PO SCH (09:06)
[2020-11-16] MEDS: PREDNISOLONE 5 MG/5 ML PO SCH (09:06)
[2020-11-16 12:02] VITALS: BP 107/62
--- NOTE | 2020-11-16 14:50 | NUR ---
RD TEACHING NOTE Diet education due to pt request. MD recommendation for liver cirrhosis and foods with potassium due to hypokalemia. RD provided patient with list of high potassium foods along with ways to increase intake. Pt was given information for diet recommendations for liver cirrhosis. Pt was advised to limit/avoid excess sodium intake and to eat high quality protein as well as fiber with a balanced meal. Pt was advised to follow MD recommendations with vitamin intake and to avoid consumption of alcohol. Pt was encouraged to eat 5-6 small frequent meals and to have snacks before going to bed. Pt verbalized understanding. All questions and concerns were addressed. Contact RD as nutritional concerns arise. Thank you. Addendum: 11/16/20 at [address] Amended: Links added.
--- NOTE | 2020-11-16 14:59 | NUR ---
RD FOLLOW UP Pt is currently on a GI soft diet with a PO intake of 75-100% Pt stated he has a good appetite and is tolerating diet. Pt is on lactulose and protocol for 2-3 daily bowel movements. Pt's Bili is trending down as per EMR records. As per MD, pt voiced concerns for diet recommendation. RD completed diet education 11/16/20 with food suggestions to increase potassium intake. Pt is pending d/c. RD RECOMMENDATION: Continue current diet order. Monitor PO intake, if <50% consider 6 small frequent meals with ONS ensure BID. When medically feasible, pt may have regular diet. Monitor K, renal and Bili labs. Contact RD as nutritional concerns arise. Thank you LABS: K 3.3, CO2 16, BUN 24, CREAT 1.8, GFR 45, BG 115, TOT CA 7.6, PHOS 2.4, MG 3.0, BILI 30.8, ALB 1.7, TOT PRO 5.4 LBM: 11/15/20 Addendum: 11/16/20 at [address] Amended: Links added.
--- NOTE | 2020-11-16 16:52 | NUR ---
DC HOME IN CARE OF FAMILY. ENCOURAGED TO FOLLOW UP WITH AA ON DISCHARGE PT WITH MEDICAL OBSTACLES AND BEHAVIORAL CHALLENGES
== END 2020-11-16 18:00 | disposition home or self-care (01) | DRG 433 ==
LOC: EDH 10:46 → EDHIP 10:47 → UNDOADMIN 10:47 → EDHIP 10:48 → 3AH 21:19
PROVIDERS: ADMIT Hospitalist; ATTEND Hospitalist
DX: K70.31 Alcoholic cirrhosis of liver with ascites (principal); N17.9 Acute kidney failure, unspecified; D68.4 Acquired coagulation factor deficiency; E44.0 Moderate protein-calorie malnutrition; E87.6 Hypokalemia; N18.2 Chronic kidney disease, stage 2 (mild); D64.9 Anemia, unspecified; E11.22 Type 2 diabetes mellitus with diabetic chronic kidney disease; E83.39 Other disorders of phosphorus metabolism; E83.42 Hypomagnesemia; E87.5 Hyperkalemia; F10.10 Alcohol abuse, uncomplicated; Y90.9 Presence of alcohol in blood, level not specified; I12.9 Hypertensive chronic kidney disease with stage 1 through stage 4 chronic kidney disease, or unspecified chronic kidney disease; K70.11 Alcoholic hepatitis with ascites; Z82.49 Family history of ischemic heart disease and other diseases of the circulatory system; Z83.3 Family history of diabetes mellitus; Z91.19 Patient's noncompliance with other medical treatment and regimen; Z68.27 Body mass index [BMI] 27.0-27.9, adult; Z90.49 Acquired absence of other specified parts of digestive tract
CPT/HCPCS: 36415; 71045; 76705; 80048; 80053; 80076; 80305; 81001; 82140; 82570; 83735; 83935; 84100; 84132; 84300; 85025; 85610; 87040; G0378; J0696; J1940; J3411; J3480; J3490; J7030; J7510; Q0163

== ENCOUNTER 2020-11-25 09:55 | Inpatient (IN) | payer OTHER ==
[~2020-11-25] VITALS: Ht 162.6 cm; Wt 87.3 kg
[~2020-11-25 09:55] MED LIST: FOLI0.4T2 PO; LACT10SO32 PO; THIA500T3 PO
[2020-11-25 10:33] LABS: BASOPHILS % (AUTO) 0.2 % (0.0-5.0); EOSINOPHILS % (AUTO) 0.1 % (0.0-8.0); LYMPHOCYTES % (AUTO) 1.7 % (21.0-51.0); MEAN CORPUSCULAR HEMOGLOBIN 33.8 pg (27.0-33.0); MEAN CORPUSCULAR VOLUME 91.5 fL (79-99); MONOCYTES % (AUTO) 3.3 % (3.0-13.0); NEUTROPHILS % (AUTO) 93.9 % (40.0-77.0); PLATELET COUNT (AUTO) 44 K/uL (130-400); RED BLOOD CELL COUNT(AUTO) 3.28 MIL/uL (4.50-6.20); RED CELL DISTRIBUTION WIDTH 14.6 % (11.0-15.5)
[2020-11-25 10:42] LABS: CREATININE 3.7 mg/dL (0.5-1.5); POTASSIUM 3.5 mmol/L (3.5-5.1)
[2020-11-25 11:05] LABS: ALBUMIN 1.9 g/dL (3.5-5.0)
[2020-11-25 11:07] LABS: PLATELET MORPHOLOGY COMMENT MARKED DECREASE
[2020-11-25 11:47] LABS: TOTAL PROTEIN, SERUM 5.2 g/dL (6.0-8.3)
[2020-11-25 12:15] LABS: BILIRUBIN,TOTAL 40.6 mg/dL (0.2-1.0)
[2020-11-25] MEDS ORDERED: SODIUM CHLORIDE 0.9% 1000ML 1,000 ML IV ONE (12:53)
[2020-11-25 13:28] LABS: INR 2.11 (0.85-1.15); PROTHROMBIN TIME 21.1 SEC (9.6-11.6)
[2020-11-25 13:29] LABS: APPEARANCE,URINE CLEAR (CLEAR); BILIRUBIN,URINE LARGE (NEGATIVE); COLOR,URINE ORANGE (YELLOW); GLUCOSE, URINE (UA) NEGATIVE (NEGATIVE); KETONES,URINE NEGATIVE (NEGATIVE); LEUKOCYTE ESTERASE ,URINE NEGATIVE (NEGATIVE); NITRATE,URINE NEGATIVE (NEGATIVE); OCCULT BLOOD,URINE TRACE-INTACT (NEGATIVE); PH,URINE 6.5 (5.0-8.0); PROTEIN,URINE NEGATIVE (NEGATIVE); UROBILINOGEN,URINE 0.2 mg/dL (0.2-1.0)
[2020-11-25 13:33] LABS: CREATININE,URINE RANDOM 61 mg/dL (30-135); SODIUM,URINE RANDOM < 15 mmol/l (40-220)
[2020-11-25 13:37] LABS: AMPHET/METH SCREEN,URINE NEGATIVE (NEGATIVE); BACTERIA,URINE Rare /HPF (None Seen); BARBITURATE SCREEN, URINE NEGATIVE (NEGATIVE); BENZODIAZEPINES SCREEN,URINE POSITIVE (NEGATIVE); CANNABINOID SCREEN,URINE NEGATIVE (NEGATIVE); COCAINE SCREEN,URINE NEGATIVE (NEGATIVE); OPIATE SCREEN,URINE NEGATIVE (NEGATIVE); PHENCYCLIDINE SCREEN,URINE NEGATIVE (NEGATIVE); RBC,URINE 0-1 /HPF (0-1)
[2020-11-25 13:38] LABS: SQUAMOUS EPITHELIAL CELL,UR Rare /HPF (0-2)
[2020-11-25] MEDS ORDERED: SODIUM BICARBONATE 650 MG TAB PO SCH (13:40)
[2020-11-25 16:16] LABS: ABG HCO3 10.8 mmol/L (21.0-28.0); ABG OXYGEN SATURATION 98.2 % (95.0-99.0); ABG PCO2 20 mmHg (35-48)
[2020-11-25] MEDS ORDERED: METHYLPREDNISOLONE SOD SUCC 40MG/ML 1ML ONE (16:39)
[2020-11-25] MEDS ORDERED: ALBUMIN (HUMAN) 25% 50 ML IV ONE (16:40)
[2020-11-25] MEDS ORDERED: SODIUM BICARBONATE 650 MG TAB ONE (20:29)
[2020-11-25] MEDS ORDERED: MIDODRINE HCL 5 MG TABLET ONE (20:30)
[2020-11-25] MEDS ORDERED: OCTREOTIDE ACETATE 100 MCG/ML AMP ONE (20:32)
[2020-11-25] MEDS ORDERED: LACTULOSE 20 GM/30 ML UDCUP PO SCH (21:00)
[2020-11-26] MEDS ORDERED: ALBUMIN (HUMAN) 25% 50 ML IV SCH (00:30)
[2020-11-26] MEDS ORDERED: LACTULOSE 20 GM/30 ML UDCUP ONE ×2 (05:15→08:27)
[2020-11-26 05:39] LABS: HEMATOCRIT 26.9 % (42-54); MEAN CORPUSCULAR HEMOGLOBIN 33.7 pg (27.0-33.0); MEAN CORPUSCULAR HGB CONC 37.2 g/dL (32.0-36.0); MEAN CORPUSCULAR VOLUME 90.6 fL (79-99); PLATELET COUNT (AUTO) 38 K/uL (130-400); RED BLOOD CELL COUNT(AUTO) 2.97 MIL/uL (4.50-6.20); RED CELL DISTRIBUTION WIDTH 14.5 % (11.0-15.5); WHITE BLOOD COUNT (AUTO) 11.9 K/uL (4.8-10.8)
[2020-11-26 06:02] LABS: CREATININE 2.6 mg/dL (0.5-1.5); POTASSIUM 3.3 mmol/L (3.5-5.1)
[2020-11-26 06:07] LABS: INR 2.49 (0.85-1.15); PROTHROMBIN TIME 24.5 SEC (9.6-11.6)
[2020-11-26 06:16] LABS: BAND NEUTROPHILS % (MANUAL) 6 % (0-2); LYMPHOCYTES % (MANUAL) 2 % (22-44); MAN.DIFF COMMENT-IMPRESSION MANUAL DIFFERENTIAL; MONOCYTES % (MANUAL) 5 % (2-9); PLATELET MORPHOLOGY COMMENT MARKED DECREASE; SEGMENTED NEUTROPHILS % 87 % (40-70)
[2020-11-26 07:16] LABS: ALBUMIN 1.7 g/dL (3.5-5.0); BILIRUBIN,TOTAL 33.8 mg/dL (0.2-1.0); TOTAL PROTEIN, SERUM 4.5 g/dL (6.0-8.3)
[2020-11-26 07:17] LABS: BILIRUBIN,DIRECT 28.2 mg/dL (0.0-0.3)
[2020-11-26 08:00] VITALS: BP 122/67
[2020-11-26] MEDS ORDERED: LACTULOSE 20 GM/30 ML UDCUP PO SCH ×2 (08:15)
[2020-11-26] MEDS: LACTULOSE 20 GM/30 ML UDCUP PO SCH ×3 (08:15→19:31)
[2020-11-26] MEDS ORDERED: METHYLPREDNISOLONE SOD SUCC 40MG/ML 1ML ONE (08:27)
[2020-11-26] MEDS ORDERED: ALBUMIN (HUMAN) 25% 50 ML IV ONE (08:27)
[2020-11-26] MEDS ORDERED: OCTREOTIDE ACETATE 100 MCG/ML AMP ONE (08:28)
[2020-11-26] MEDS: METHYLPREDNISOLONE SOD SUCC 40MG/ML 1ML IVP SCH ×2 (08:45→15:44)
[2020-11-26] MEDS: OCTREOTIDE ACETATE 100 MCG/ML AMP SQ SCH ×2 (09:00→21:17)
[2020-11-26 09:30] VITALS: BP 122/67
[2020-11-26] MEDS: MIDODRINE HCL 5 MG TABLET PO SCH ×3 (10:08→19:30)
[2020-11-26 12:03] VITALS: BP 135/74
[2020-11-26] MEDS ORDERED: SODIUM BICARBONATE 650 MG TAB PO SCH (14:00)
[2020-11-26 15:51] VITALS: BP 140/65
[2020-11-26 20:03] VITALS: BP 142/77
[2020-11-26] MEDS: SODIUM BICARBONATE 650 MG TAB PO SCH (21:18)
[2020-11-26 23:38] VITALS: BP 141/79
[2020-11-27] MEDS: METHYLPREDNISOLONE SOD SUCC 40MG/ML 1ML IVP SCH ×2 (00:30→10:09)
[2020-11-27 03:31] VITALS: BP 147/80
[2020-11-27 04:35] LABS: BASOPHILS % (AUTO) 0.2 % (0.0-5.0); EOSINOPHILS % (AUTO) 0.9 % (0.0-8.0); HEMATOCRIT 26.5 % (42-54); LYMPHOCYTES % (AUTO) 2.4 % (21.0-51.0); MEAN CORPUSCULAR HEMOGLOBIN 33.1 pg (27.0-33.0); MEAN CORPUSCULAR VOLUME 89.5 fL (79-99); MONOCYTES % (AUTO) 3.9 % (3.0-13.0); NEUTROPHILS % (AUTO) 91.7 % (40.0-77.0); PLATELET COUNT (AUTO) 34 K/uL (130-400); RED BLOOD CELL COUNT(AUTO) 2.96 MIL/uL (4.50-6.20); RED CELL DISTRIBUTION WIDTH 14.6 % (11.0-15.5); WHITE BLOOD COUNT (AUTO) 14.7 K/uL (4.8-10.8)
[2020-11-27 05:14] LABS: ALBUMIN 1.9 g/dL (3.5-5.0); CREATININE 3.1 mg/dL (0.5-1.5); POTASSIUM 3.2 mmol/L (3.5-5.1); TOTAL PROTEIN, SERUM 4.6 g/dL (6.0-8.3)
[2020-11-27 05:28] LABS: BILIRUBIN,TOTAL 40.4 mg/dL (0.2-1.0)
[2020-11-27 08:00] VITALS: BP 127/74
[2020-11-27] MEDS ORDERED: PHYTONADIONE 10 MG/1 ML AMP IM SCH (08:15)
[2020-11-27 09:24] LABS: INR 2.51 (0.85-1.15); PROTHROMBIN TIME 24.7 SEC (9.6-11.6)
[2020-11-27] MEDS: LACTULOSE 20 GM/30 ML UDCUP PO SCH ×3 (10:08→20:33)
[2020-11-27] MEDS: SODIUM BICARBONATE 650 MG TAB PO SCH ×2 (10:09→20:34)
[2020-11-27] MEDS: MIDODRINE HCL 5 MG TABLET PO SCH ×3 (10:09→20:34)
[2020-11-27 11:59] VITALS: BP 125/62
[2020-11-27] MEDS ORDERED: PREDNISOLONE 15 MG/5 ML PO SCH (13:02)
[2020-11-27] MEDS ORDERED: PREDNISOLONE 5 MG/5 ML PO SCH (13:03)
[2020-11-27] MEDS: PANTOPRAZOLE 40 MG/VIAL IVP SCH ×2 (15:04→20:34)
[2020-11-27] MEDS ORDERED: COMPOUND IV MISC 1 EACH IVSOLN MISC PRN (15:30)
[2020-11-27 16:00] VITALS: BP 136/71
[2020-11-27] MEDS: OCTREOTIDE ACETATE 100 MCG/ML AMP SQ SCH ×2 (16:13→20:34)
[2020-11-27 19:08] VITALS: BP 134/75
[2020-11-27] MEDS: RIFAXIMIN 550 MG TABLET PO SCH (20:34)
[2020-11-27 22:57] VITALS: BP 130/74
[2020-11-28 03:30] VITALS: BP 122/67
[2020-11-28 06:23] LABS: BASOPHILS % (AUTO) 0.1 % (0.0-5.0); HEMATOCRIT 26.4 % (42-54); LYMPHOCYTES % (AUTO) 1.8 % (21.0-51.0); MEAN CORPUSCULAR HEMOGLOBIN 33.7 pg (27.0-33.0); MEAN CORPUSCULAR HGB CONC 37.9 g/dL (32.0-36.0); MEAN CORPUSCULAR VOLUME 88.9 fL (79-99); MONOCYTES % (AUTO) 6.2 % (3.0-13.0); NEUTROPHILS % (AUTO) 90.8 % (40.0-77.0); PLATELET COUNT (AUTO) 36 K/uL (130-400); RED BLOOD CELL COUNT(AUTO) 2.97 MIL/uL (4.50-6.20); RED CELL DISTRIBUTION WIDTH 14.5 % (11.0-15.5); WHITE BLOOD COUNT (AUTO) 17.1 K/uL (4.8-10.8)
[2020-11-28 07:05] LABS: ALBUMIN 1.9 g/dL (3.5-5.0); CREATININE 3.7 mg/dL (0.5-1.5); PHOSPHORUS 4.6 mg/dL (2.5-4.9); TOTAL PROTEIN, SERUM 4.5 g/dL (6.0-8.3)
[2020-11-28 07:35] LABS: FERRITIN 1778 ng/mL (30-400); IRON, SERUM 82 mcg/dL (65-175)
[2020-11-28] MEDS ORDERED: PHYTONADIONE 10 MG/1 ML AMP IV SCH (08:00)
[2020-11-28 08:14] LABS: POTASSIUM 2.8 mmol/L (3.5-5.1)
[2020-11-28 08:15] LABS: BILIRUBIN,TOTAL 40.8 mg/dL (0.2-1.0)
[2020-11-28] MEDS ORDERED: PHYTONADIONE 10 MG in SODIUM CHLORIDE 0.9% 50 ML SQ SCH (09:00)
[2020-11-28] MEDS: OCTREOTIDE ACETATE 100 MCG/ML AMP SQ SCH ×2 (09:48→21:14)
[2020-11-28] MEDS: PHYTONADIONE 10 MG in SODIUM CHLORIDE 0.9% 50 ML IV SCH (09:48)
[2020-11-28] MEDS: RIFAXIMIN 550 MG TABLET PO SCH ×2 (09:50→21:13)
[2020-11-28] MEDS: SODIUM BICARBONATE 650 MG TAB PO SCH ×2 (09:50→21:13)
[2020-11-28] MEDS: PANTOPRAZOLE SODIUM 40 MG TABLET.DR PO SCH ×2 (09:50→16:22)
[2020-11-28] MEDS: MIDODRINE HCL 5 MG TABLET PO SCH ×3 (09:50→21:13)
[2020-11-28] MEDS: PREDNISOLONE 5 MG/5 ML PO SCH (09:54)
[2020-11-28] MEDS: LACTULOSE 20 GM/30 ML UDCUP PO SCH ×3 (09:54→21:13)
[2020-11-28] MEDS: PREDNISOLONE 15 MG/5 ML PO SCH (09:55)
[2020-11-28 16:00] VITALS: BP 128/70
[2020-11-28] MEDS ORDERED: LACTULOSE 20 GM/30 ML UDCUP PO SCH (17:00)
[2020-11-28] MEDS ORDERED: POTASSIUM CHLORIDE 20 MEQ ERTAB PO SCH ×2 (17:00)
[2020-11-28 19:07] VITALS: BP 125/71
[2020-11-28 23:33] VITALS: BP 128/72
[2020-11-29 03:30] VITALS: BP 128/65
[2020-11-29 06:42] LABS: BASOPHILS % (AUTO) 0.2 % (0.0-5.0); EOSINOPHILS % (AUTO) 0.1 % (0.0-8.0); HEMATOCRIT 28.1 % (42-54); LYMPHOCYTES % (AUTO) 2.1 % (21.0-51.0); MEAN CORPUSCULAR HEMOGLOBIN 33.5 pg (27.0-33.0); MEAN CORPUSCULAR HGB CONC 37.7 g/dL (32.0-36.0); MEAN CORPUSCULAR VOLUME 88.9 fL (79-99); MONOCYTES % (AUTO) 3.4 % (3.0-13.0); NEUTROPHILS % (AUTO) 92.3 % (40.0-77.0); NUCLEATED RED BLOOD CELLS 0.1 % (0.0-0.19); PLATELET COUNT (AUTO) 40 K/uL (130-400); RED BLOOD CELL COUNT(AUTO) 3.16 MIL/uL (4.50-6.20); RED CELL DISTRIBUTION WIDTH 15.1 % (11.0-15.5); WHITE BLOOD COUNT (AUTO) 21.7 K/uL (4.8-10.8)
[2020-11-29] MEDS: PANTOPRAZOLE SODIUM 40 MG TABLET.DR PO SCH ×2 (07:11→18:39)
[2020-11-29 07:59] LABS: ALBUMIN 1.8 g/dL (3.5-5.0); CREATININE 4.7 mg/dL (0.5-1.5); POTASSIUM 3.4 mmol/L (3.5-5.1); TOTAL PROTEIN, SERUM 4.4 g/dL (6.0-8.3)
[2020-11-29 08:00] VITALS: BP 109/56
[2020-11-29 08:04] LABS: BILIRUBIN,TOTAL 40.4 mg/dL (0.2-1.0)
[2020-11-29] MEDS: LACTULOSE 20 GM/30 ML UDCUP PO SCH ×3 (11:23→23:56)
[2020-11-29] MEDS: PREDNISOLONE 15 MG/5 ML PO SCH (11:25)
[2020-11-29] MEDS: PREDNISOLONE 5 MG/5 ML PO SCH (11:25)
[2020-11-29] MEDS: MIDODRINE HCL 5 MG TABLET PO SCH ×3 (11:26→23:55)
[2020-11-29] MEDS: SODIUM BICARBONATE 650 MG TAB PO SCH ×2 (11:26→23:55)
[2020-11-29] MEDS: OCTREOTIDE ACETATE 100 MCG/ML AMP SQ SCH ×2 (11:26→23:58)
[2020-11-29] MEDS: RIFAXIMIN 550 MG TABLET PO SCH ×2 (11:26→23:55)
[2020-11-29 12:00] VITALS: BP 107/53
[2020-11-29] MEDS: PHYTONADIONE 10 MG in SODIUM CHLORIDE 0.9% 50 ML IV SCH (12:04)
[2020-11-29 16:00] VITALS: BP 105/58
[2020-11-29] MEDS ORDERED: CEFTRIAXONE SODIUM 500 MG VIAL IV SCH (17:00)
[2020-11-29 20:00] VITALS: BP 118/65
[2020-11-30] VITALS (7 sets, daily range): BP systolic 87–111; BP diastolic 50–67
[2020-11-30] MEDS: PANTOPRAZOLE SODIUM 40 MG TABLET.DR PO SCH ×2 (06:17→14:02)
[2020-11-30 07:45] LABS: BASOPHILS % (AUTO) 0.3 % (0.0-5.0); EOSINOPHILS % (AUTO) 0.7 % (0.0-8.0); HEMATOCRIT 28.5 % (42-54); LYMPHOCYTES % (AUTO) 2.3 % (21.0-51.0); MEAN CORPUSCULAR HEMOGLOBIN 33.3 pg (27.0-33.0); MEAN CORPUSCULAR HGB CONC 36.5 g/dL (32.0-36.0); MEAN CORPUSCULAR VOLUME 91.3 fL (79-99); MONOCYTES % (AUTO) 3.6 % (3.0-13.0); NEUTROPHILS % (AUTO) 92.1 % (40.0-77.0); NUCLEATED RED BLOOD CELLS 0.1 % (0.0-0.19); PLATELET COUNT (AUTO) 34 K/uL (130-400); RED BLOOD CELL COUNT(AUTO) 3.12 MIL/uL (4.50-6.20); RED CELL DISTRIBUTION WIDTH 15.9 % (11.0-15.5)
[2020-11-30 08:18] LABS: CREATININE 6.4 mg/dL (0.5-1.5); POTASSIUM 3.6 mmol/L (3.5-5.1)
[2020-11-30] MEDS: LACTULOSE 20 GM/30 ML UDCUP PO SCH ×3 (09:50→19:26)
[2020-11-30] MEDS: PREDNISOLONE 5 MG/5 ML PO SCH (09:50)
[2020-11-30] MEDS: RIFAXIMIN 550 MG TABLET PO SCH ×2 (09:51→19:26)
[2020-11-30] MEDS: SODIUM BICARBONATE 650 MG TAB PO SCH ×2 (09:51→19:26)
[2020-11-30] MEDS: MIDODRINE HCL 5 MG TABLET PO SCH ×3 (09:51→19:26)
[2020-11-30] MEDS: OCTREOTIDE ACETATE 100 MCG/ML AMP SQ SCH ×2 (09:52→19:31)
[2020-11-30] MEDS: PREDNISOLONE 15 MG/5 ML PO SCH (09:52)
[2020-12-01 03:53] VITALS: BP 104/49
[2020-12-01 08:04] VITALS: BP 87/43
[2020-12-01] MEDS: SODIUM BICARBONATE 650 MG TAB PO SCH ×2 (10:25→20:35)
[2020-12-01] MEDS: PREDNISOLONE 15 MG/5 ML PO SCH (10:25)
[2020-12-01] MEDS: RIFAXIMIN 550 MG TABLET PO SCH ×2 (10:25→20:35)
[2020-12-01] MEDS: PANTOPRAZOLE SODIUM 40 MG TABLET.DR PO SCH ×2 (10:25→16:30)
[2020-12-01] MEDS: OCTREOTIDE ACETATE 100 MCG/ML AMP SQ SCH ×2 (10:26→20:29)
[2020-12-01] MEDS: PREDNISOLONE 5 MG/5 ML PO SCH (10:26)
[2020-12-01] MEDS: LACTULOSE 20 GM/30 ML UDCUP PO SCH ×3 (10:29→20:35)
[2020-12-01] MEDS: MIDODRINE HCL 5 MG TABLET PO SCH ×3 (10:29→20:35)
[2020-12-01 11:05] VITALS: BP 83/38
[2020-12-01] MEDS ORDERED: ONDANSETRON 4 MG TABLET PO PRN (15:15)
[2020-12-01] MEDS ORDERED: ONDANSETRON HCL 4 MG/2 ML VIAL IVP PRN (15:15)
[2020-12-01] MEDS ORDERED: MORPHINE SULFATE 20MG/ML ORAL 0.25 ML PO PRN (15:15)
[2020-12-01] MEDS: MORPHINE SULFATE 20MG/ML ORAL 0.25 ML PO PRN ×2 (15:30→20:31)
[2020-12-01 16:27] VITALS: BP 84/44
[2020-12-01 19:53] VITALS: BP 101/32
[2020-12-01] MEDS ORDERED: CEFTRIAXONE SODIUM 500 MG VIAL IV SCH (21:00)
[2020-12-02] MEDS: PANTOPRAZOLE SODIUM 40 MG TABLET.DR PO SCH (06:39)
== END 2020-12-02 07:20 | disposition expired | DRG 441 ==
LOC: EDH 09:55 → EDHIP 09:56 → 4CH 11-26 09:23 → 3AH 11-30 18:44
PROVIDERS: ADMIT Internal Medicine; ATTEND Internal Medicine
DX: K72.90 Hepatic failure, unspecified without coma (principal); N18.6 End stage renal disease; N17.9 Acute kidney failure, unspecified; D68.9 Coagulation defect, unspecified; E87.2 Acidosis; E72.20 Disorder of urea cycle metabolism, unspecified; E87.4 Mixed disorder of acid-base balance; I12.0 Hypertensive chronic kidney disease with stage 5 chronic kidney disease or end stage renal disease; Z20.828 Contact with and (suspected) exposure to other viral communicable diseases; Z90.49 Acquired absence of other specified parts of digestive tract; Z83.3 Family history of diabetes mellitus; N18.30 Chronic kidney disease, stage 3 unspecified; D69.6 Thrombocytopenia, unspecified; E80.6 Other disorders of bilirubin metabolism; D72.829 Elevated white blood cell count, unspecified; Y92.89 Other specified places as the place of occurrence of the external cause; D64.9 Anemia, unspecified; E86.9 Volume depletion, unspecified; Z51.5 Encounter for palliative care; Z66 Do not resuscitate; R53.81 Other malaise
CPT/HCPCS: 36415; 36600; 71046; 74176; 80048; 80053; 80076; 80305; 81001; 82140; 82150; 82248; 82270; 82570; 82728; 82803; 83540; 83605; 83690; 84100; 84300; 85025; 85610; 87040; 87088; 87426; 93005; C9113; G0378; J0696; J2354; J2920; J3430; J7030; J7510; P9047; U0003